=== PATIENT | female | born 1980 ===

== ENCOUNTER 2016-10-13 16:40 | Inpatient (IN) ==
[2016-10-13] MEDS ORDERED: METOCLOPRAMIDE 10 MG/2 ML VIAL IV STA (17:05)
[2016-10-13] MEDS ORDERED: THIAMINE INJ 100 MG, FOLIC ACID INJ 1 MG, MAGNESIUM SULF INJ 2 GM, MULTIVITAMIN INJ 10 ... IV STA (17:05)
[2016-10-13] MEDS ORDERED: PANTOPRAZOLE 40 MG VIAL IV STA (17:05)
[2016-10-13] MEDS ORDERED: SODIUM CHLORIDE 0.9% 1,000 ML IV STA (17:05)
--- NOTE | 2016-10-13 17:13 | Emergency Department Note ---
Arrival - Arrival Chief Complaint: Abdominal / Flank Pain Stated Complaint: abdominal pain/low bp ED Nursing Triage Note: Transfer from [facility] ER for further evaluation of abdominal pain, increased lactate 3.5, and increasd alcohol 0.24. Onset pain began approx one week ago. +nausea/vomiting. Mode of Arrival: Stretcher Limitations: No Limitations Source: Patient Time Seen by Provider: 10/13/16 17:05 - History of Present Illness HPI Narrative: This 36-year-old female presents on transfer from [facility] where she presented earlier in the day hyperventilating, intoxicated, and lethargic. The patient currently is arousable and oriented 3. She states she has had 18 beers before presenting to [facility] this morning. Subsequent studies at [facility] revealed an elevated alcohol level as expected as well as elevated blood sugar and lactic acid, both expected given her inebriated state. In association with this she denies chest pain, shortness of breath, nausea, vomiting, or diarrhea. Currently she has no specific complaint and appears in no acute medical distress. Onset (ago): hour(s) (Patient presents several hours after onset of symptom) Date of Last Menstrual Period: "I hadn't seen my period in a long time". Allergies/Adverse Reactions: Allergies Allergy/AdvReac Type Severity Reaction Status Date / Time No Known Allergies Allergy Verified 10/13/16 16:51 Home Medications: Home Medications Medication Instructions Recorded Confirmed Type Aspirin [Ecotrin] 81 mg PO DAILY 08/28/15 10/13/16 History Glimepiride 4 mg PO BID 08/28/15 10/13/16 History Lisinopril 40 mg PO DAILY 08/28/15 10/13/16 History Metoprolol Succinate Xl [Toprol Xl] 100 mg PO BEDTIME 08/28/15 10/13/16 History metFORMIN [Glucophage] 1,000 mg PO BID W/MEALS 08/28/15 10/13/16 History Propylene Glycol [Systane Balance] 1 drop BOTH EYES QID PRN 10/13/16 10/13/16 History Review of System - Review of System 12 point system: reviewed and no additional remarkable complaints except as stated - Review of System Constitutional: Present: as per HPI Respiratory: Present: as per HPI Cardiovascular: Present: as per HPI Gastrointestinal: Present: as per HPI Neurological: Present: as per HPI Medical,Surgical,& Family Hx - Medical History Cardio: History of: Hypertension Endocrine: History of: Diabetes Mellitus (NIDDM) - Surgical History Reproductive Surgeries: Surgical HX of;: Dilation and Curettage (08/28/15) Orthopedic Surgeries: Surgical HX of;: Orthopedic Surgery (right ankle) - Family History Family History: Reports;: Family Diabetes (mother, father), Family Hypertension (mother, father) Denies;: Family Heart Disease, Family Stroke - Social History Smoking Status: Unknown if ever smoked Frequency of Alcohol Use: Frequently Type of Drug Use: None Exam Physical Examination: GENERAL: Well developed, well nourished female in no acute distress. HEENT: Normocephalic. No trauma. Moist mucous membranes. EOMI. PERRLA. ENT NML NECK: Supple. No adenopathy. CARDIAC: Regular. No murmurs. Heart rate 100 CHEST: Clear to auscultation. No respiratory distress. O2 sat 90% ABDOMEN: Soft. Midepigastric tenderness. Active bowel sounds. EXTREMITIES: No trauma. Normal ROM. No pedal edema. SKIN: No diaphoresis. No rash. NEURO: Alert. Oriented 3 but inebriated and lethargic. Motor, sensory, vibratory intact. No focal deficits. Vital Signs: Vital Signs Temperature 97.2 F L 10/13/16 16:40 Pulse Rate 92 H 10/13/16 18:15 Respiratory Rate 18 10/13/16 18:15 Blood Pressure 124/71 10/13/16 18:15 O2 Sat by Pulse Oximetry 97 10/13/16 18:15 Course - Consultations Consultation #1: Discussed with hospitalist service who will admit for further evaluation treatment. Results - Labs CBC & BMP: 10/13/16 17:49 Labs: Laboratory per [place] reveals creatinine 1.0, BUN 12, sodium 138, potassium 4.4 , glucose 379, alcohol level 0.24 white blood count 6.8, hematocrit 38, pH 7.28 on room air test negative lipase 109, amylase 31. Lab here reveals lactic acid of 2.9, glucose 227, and alcohol 162 - Impressions EKG from [place]: Sinus tachycardia at 135 with normal [place] interval and QRS duration. Right ventricular hypertrophy noted, nonspecific ST T changes noted. No acute injury pattern noted. - Diagnostic Findings Procedure: Chest x-ray: image reviewed by me, report reviewed by me (Mild cardiomegaly otherwise negative) Disposition Clinical Impression: Alcohol intoxication, Hyperglycemia Case discussed with: patient Condition: Guarded Time of Disposition: 18:33
--- NOTE | 2016-10-13 17:56 | XRay Report ---
Exam: XR chest 1V portable Date: 10/13/2016 5:07 PM Indication: Shortness of breath Comparison: None Technical: AP portable Findings: External cardiac leads are present. The heart is mildly prominent. No obvious infiltrate or effusion. Mediastinum and bony structures are otherwise intact. Impression: 1. Mild cardiomegaly without decompensation. PROCEDURE INTERPRETED AT [facility] DEPARTMENT OF RADIOLOGY Final Report Signed by: Dr. Neil Palacio
[2016-10-13] MEDS ORDERED: PANTOPRAZOLE 40 MG VIAL IV ONE (17:58)
[2016-10-13 18:02] LABS: Apearance,Urine CLEAR (Clear); Bilirubin,Urine Negative (Negative); Blood, Urine Negative (Negative); Glucose,Urine (UA) >=500 mg/dL (Negative); Ketones,Urine Negative (Negative); Mucus,Urine Occasional /LPF (Occasional); Nitrite,Urine Negative (Negative); Protein,Urine Negative; RBC,Urine <1 /HPF (0-4); Urine Color Yellow (Yellow); Urine Urobilinogen < 2.0 EU/DL (0.2-1.0); WBC,Urine <1 /HPF (0-6)
[2016-10-13 18:10] LABS: Barbiturates Screen,Urine Negative (Negative); Benzodiazepines Screen,Urine Negative (Negative); Cannabinoid Screen,Urine Negative (Negative); Opiate Screen,Urine Negative (Negative); Phencyclidine Screen,Urine Negative (Negative)
[2016-10-13 18:14] LABS: Lactic Acid 2.9 MMOL/L (0.4-2.0)
[2016-10-13 18:18] LABS: Calcium 8.2 MG/DL (8.5-10.1); Osmolality,Calculated 285.3 MOS/KG (273-304); Potassium 4.4 MMOL/L (3.5-5.1)
[2016-10-13] MEDS ORDERED: LORazepam 2 MG/1 ML VIAL IV PRN (18:35)
[2016-10-13] MEDS ORDERED: DEXTROSE 50% 25 GM/50 ML VIAL IV PRN (18:36)
[2016-10-13] MEDS ORDERED: GLUCAGON 1 MG VIAL IM PRN (18:36)
[2016-10-13] MEDS ORDERED: SODIUM CHLORIDE 0.9% 3,150 ML IV ONE (18:37)
--- NOTE | 2016-10-13 18:51 | Hospitalist History & Physical ---
Assessment and Plan - Time spent with patient Time spent with patient: Greater than 30 minutes (1) Alcohol intoxication Status: Acute Assessment and plan: We will administer fluids and admit observation. Current Visit: Yes (2) Abdominal pain Status: Acute Assessment and plan: Appears to be improving. Lactic acid is 2.9 not significantly elevated. Amylase lipase normal. CT of the abdomen is pending. Will admit to observation for fluids. Current Visit: Yes (3) Diabetes mellitus Status: Acute Assessment and plan: Sliding scale insulin and Accu-Cheks. Current Visit: Yes History of Present Illness Chief complaint: Alcohol intoxication and abdominal pain History of present illness: Ms. Duong is a 36 year old female with diabetes mellitus who was transferred from [facility] with alcohol intoxication and abdominal pain. Patient is inebriated and sleeping. She is easy to arouse however falls right back asleep. I am able to only obtain a limited history. Information was obtained from ER records. Patient apparently had drank 18 beers prior to presenting to [facility]. She was inebriated and vomiting. She complained of abdominal pain that she has been having for 2 weeks. The patient told me her abdominal pain is much better currently. She points to her left upper quadrant. Lactic acid 2.9 Home Medications Medication Instructions Recorded Confirmed Type Aspirin [Ecotrin] 81 mg PO DAILY 08/28/15 10/13/16 History Glimepiride 4 mg PO BID 08/28/15 10/13/16 History Lisinopril 40 mg PO DAILY 08/28/15 10/13/16 History Metoprolol Succinate Xl [Toprol Xl] 100 mg PO BEDTIME 08/28/15 10/13/16 History metFORMIN [Glucophage] 1,000 mg PO BID W/MEALS 08/28/15 10/13/16 History Propylene Glycol [Systane Balance] 1 drop BOTH EYES QID PRN 10/13/16 10/13/16 History Allergies Allergy/AdvReac Type Severity Reaction Status Date / Time No Known Allergies Allergy Verified 10/13/16 16:51 Medical,Surgical,& Family Hx - Medical History Cardio: History of: Hypertension Endocrine: History of: Diabetes Mellitus (NIDDM) - Surgical History Reproductive Surgeries: Surgical HX of;: Dilation and Curettage (08/28/15) Orthopedic Surgeries: Surgical HX of;: Orthopedic Surgery (right ankle) - Family History Family History: Reports;: Family Diabetes (mother, father), Family Hypertension (mother, father) Denies;: Family Heart Disease, Family Stroke - Social History Smoking Status: Unknown if ever smoked Frequency of Alcohol Use: Frequently Type of Drug Use: None ROS unobtainable: due to mental status 12 point system: reviewed and no additional remarkable complaints except as stated Exam - Constitutional Vitals: Period Temp Pulse Resp BP Sys/García Pulse Ox Last 24 Hr 97.2 F-97.2 F 92-103 16-21 102-124/68-71 96-98 General appearance: no acute distress - Head Head exam: Present: normocephalic, atraumatic - Eye Eye exam: Present: EOMI Pupils: Present: ТАТЬЯНА - ENT ENT exam: Present: normal exam - Neck Neck exam: Present: normal inspection - Respiratory Respiratory exam: Present: clear to auscultation bilaterally. Absent: rhonchi, wheezes - Cardiovascular Cardiovascular exam: Present: regular rate and rhythm. Absent: gallop, rubs, systolic murmur - GI/Abdominal GI/Abdominal exam: Present: normal bowel sounds, tenderness (Mild tenderness to palpation left upper quadrant), soft. Absent: distended, firm, guarding, rebound - Extremities Exam Extremities exam: Present: normal inspection. Absent: calf tenderness, edema Results - Labs CBC & BMP: 10/13/16 17:49 10/13/16 17:49 Lab Results: I have reviewed the past 24 hour labs
[2016-10-13 18:53] LABS: Basophils % 0.4 % (0.0-0.8); Eosinophils % 0.2 % (0.00-10.9); Hematocrit 35.7 VOL% (35.7-47.0); Hemoglobin 12.5 GM/DL (12.0-16.0); Immature Granulocytes % 0.4 %; Immature Granulocytes Absolute 0.02 #; Lymphocytes # 1.5 10*3/uL (1.4-4.0); Lymphocytes % 29.6 % (21.3-54.2); Mean Corpuscular Hemoglobin 31 PG (27-34); Mean Corpuscular Volume 88.1 FL (87-102); Mean Platelet Volume 9.9 FL (9.6-12.0); Monocytes # 0.4 10*3/uL (0.11-0.8); Monocytes % 6.8 % (1.7-12.7); Neutrophils # 3.2 10*3/uL (1.4-7.4); Neutrophils % 62.6 % (38.7-73.9); Platelet Count 101 T/CUMM (130-400); Red Blood Count 4.05 MC/CUMM (3.8-5.5); Red Cell Distribution Width 12.8 % (9.3-17.3); White Blood Count 5.2 T/CUMM (4-12)
[2016-10-13 19:00] LABS: PT Patient Result 10.6 SECS; Partial Thromboplastin Time 23.6 SECS (0-40)
--- NOTE | 2016-10-13 19:38 | CT Report ---
Exam: CT abdomen pelvis w con Date: 10/13/2016 6:38 PM Comparison: None Indication: Fever Total DLP: 1193.5 mGy*cm Technical: No oral contrast was administered. Images were obtained from the lung bases to the iliac crest continuation through the pelvis with 100 cc of Omnipaque 350 with axial sagittal coronal imaging available for review. Dose reduction was performed with decreasing kv and mA and automated exposure Findings: Lung bases: No pneumothorax or mass present minimal dependent atelectatic change in both lung bases. Mild cardiac enlargement present Liver and Spleen: Fatty infiltration of liver is present. The hepatic and portal veins are unremarkable. Spleen is enlarged measuring approximately 14 cm. Gallbladder and Pancreas: Previous cholecystectomy. Mild fatty infiltration of the pancreas present. No focal mass otherwise noted or pancreatic duct dilatation. Adrenals: Unremarkable Kidneys: Both kidneys are equally perfused and demonstrate no evidence for obstructive uropathy. The ureters are demonstrated to bladder without obstruction bilaterally. Stomach: Incomplete distended with air-fluid and debris Retroperitoneum: Small shotty nodes in the periaortic region. Aorta and IVC: No obvious aneurysm aorta vessels and IVC are unremarkable. Increase in number of vessels adjacent to the spleen and suggesting splenic varices, gastric varices and esophageal varices Bowel and Mesentery: The appendix is demonstrated without enlargement. A few prediverticular changes present in the rectosigmoid colon. No obvious bowel obstruction or mass present. Pelvis: Bladder: Cavanaugh catheter present within the bladder with contrast present. Small amount of air is noted Fluid: No free fluid identified. Lymph nodes: Small shotty nodes in the inguinal regions bilaterally. Pelvic organs: Unremarkable Osseous structures: No suspicious appearing osseous abnormalities noted. Impression: 1. Splenomegaly with fatty infiltration of the liver 2. Prior cholecystectomy 3. Increased vascularity suggest some early splenic varices. Early cirrhosis changes suspected with some early gastric and esophageal varices questioned 4. No acute intra-abdominal or pelvic pathology otherwise noted at this time. PROCEDURE INTERPRETED AT [facility] DEPARTMENT OF RADIOLOGY Final Report Signed by: Dr. Neil Palacio
[2016-10-13 19:42] LABS: Folate 14.3 NG/ML (5.4-24.0)
[2016-10-13] MEDS: SODIUM CHLORIDE 0.9% 1,000 ML IV SCH (20:39)
[2016-10-13 22:29] LABS: ABG HCO3 20.3 MMOL/L (20-26); ABG Oxygen Saturation 95.7 % (95-100); ABG PCO2 41.5 MM HG (35-48); ABG PH 7.312 (7.35-7.45); ABG TCO2 19.1 MMOL/L (23-27); Allen Test Positive; Pt O2 Delivery Device Room Air
[2016-10-13] MEDS: INSULIN REGULAR 100 UNIT/ML SUBCUT SCH (23:54)
[2016-10-14] MEDS ORDERED: ACETAMINOPHEN 325 MG TABLET PO PRN (04:16)
[2016-10-14] MEDS: SODIUM CHLORIDE 0.9% 1,000 ML IV SCH ×3 (04:36→12:46)
[2016-10-14] MEDS: INSULIN REGULAR 100 UNIT/ML SUBCUT SCH ×2 (06:28→12:15)
[2016-10-14 07:29] LABS: Albumin 2.9 G/DL (3.4-5.0); Bilirubin,Total 0.7 MG/DL (0.2-1.0); Calcium 7.6 MG/DL (8.5-10.1); Osmolality,Calculated 283.1 MOS/KG (273-304); Potassium 4.4 MMOL/L (3.5-5.1); Total Protein 6.2 G/DL (6.4-8.3)
--- NOTE | 2016-10-14 15:58 | Discharge Summary ---
Hospital Course - Hospital Course Hospital Course: This hospitalization included patient admitted in transfer for abdominal pain and alcohol intoxication. The patient was observed in the ICU for 24 hours. She remained hemodynamically stable. Her CT scan of the abdomen was unremarkable. She was afebrile and her vitals were stable. She was observed today and had no further pain. She was able to tolerate her diet. She has been stable. She has reached maximum hospitalization and is ready for discharge. She will be able to follow with [facility] primary care in the next week. - Time spent with patient Time with patient DS: Greater than 30 minutes (32 minutes) Diagnosis - Discharge Diagnosis (1) Alcohol intoxication Status: Resolved (2) Abdominal pain Status: Resolved (3) Diabetes mellitus Status: Chronic Discharge Plan - Discharge Data Disposition: Disch To Home/Self Care Condition at Discharge: Stable Discharge Diet: advance to your usual diet Activity: resume usual activities as tolerated Contact your physician if you experience:: fever over 101 - Discharge Medications Continue Metoprolol Succinate Xl [Toprol Xl] 100 mg PO BEDTIME Aspirin [Ecotrin] 81 mg PO DAILY metFORMIN [Glucophage] 1,000 mg PO BID W/MEALS Lisinopril 40 mg PO DAILY Glimepiride 4 mg PO BID Propylene Glycol [Systane Balance] 1 drop BOTH EYES QID PRN PRN Reason: Dry Eyes - Follow Up or Referral - Forms/Instructions Additional Discharge Instructions: Follow up with primary care at [facility]. Patient to avoid ETOH Exam - Constitutional Vitals: Period Temp Pulse Resp BP Sys/García Pulse Ox Last 24 Hr 97.2 F-98.2 F 86-103 12-30 100-147/62-94 95-99 General appearance: normal weight - Head Head exam: Present: normal inspection - ENT ENT exam: Present: normal exam - Respiratory Respiratory exam: Present: clear to auscultation bilaterally - Cardiovascular Cardiovascular exam: Present: regular rate and rhythm - GI/Abdominal GI/Abdominal exam: Present: normal bowel sounds - Extremities Exam Extremities exam: Present: normal inspection - Neurological Exam Neurological exam: Present: alert, oriented X3 - Psychiatric Psychiatric exam: Present: normal affect, normal mood - Skin Skin exam: Present: normal color Discharge Results Procedures and tests throughout hospitalization: Pending Orders 10/13/16 17:49 Urine Culture Stat 10/13/16 19:23 MRSA Surveillence, Inf Control Routine 10/13/16 20:22 Blood Culture Stat Labs on day of discharge: Labs from last 24 hours 10/14/16 10/14/16 10/14/16 12:15 06:41 06:09 WBC RBC Hgb Hct MCV MCH MCHC RDW Plt Count MPV Neut % (Auto) Lymph % (Auto) Jenkins % (Auto) Eos % (Auto) Baso % (Auto) Neut # (Auto) Lymph # (Auto) Jenkins # (Auto) Eos # (Auto) Baso # (Auto) Immature Gran % Nucleated RBC % Immature Gran # Nucleated RBCs # INR PT Patient/Control Mix Circ Anticoag PTT ABG pH ABG pCO2 ABG pO2 ABG HCO3 ABG Total CO2 ABG O2 Saturation ABG Base Excess FiO2 Sodium 142 Potassium 4.4 Chloride 111 H Carbon Dioxide 25 Anion Gap 10.4 BUN 7 Creatinine 0.60 GFR Calculation 129 BUN/Creatinine Ratio 11.00 Glucose 145 H POC Glucose 144 H 166 H Hemoglobin A1c Calculated Osmolality 283.1 Lactic Acid Calcium 7.6 L Total Bilirubin 0.70 AST 36 ALT 33 Alkaline Phosphatase 98 Total Protein 6.2 L Albumin 2.9 L Globulin 3.3 Albumin/Globulin Ratio 0.8 L Amylase Lipase Vitamin B12 Folate Serum , Qual Random Cortisol Urine Color Urine Appearance Urine pH Ur Specific [place] Urine Protein Urine Glucose (UA) Urine Ketones Urine Blood Urine Nitrate Urine Bilirubin Urine Urobilinogen Urine Leukocytes Urine RBC Urine WBC Urine Mucus Ur Culture Indicated? Urine Opiates Screen Ur Barbiturates Screen Ur Phencyclidine Scrn U Amphetamine/Methamph U Benzodiazepines Scrn U Cocaine Metab Screen U Cannabinoids Screen Serum Alcohol 10/13/16 10/13/16 10/13/16 23:43 22:25 21:41 WBC RBC Hgb Hct MCV MCH MCHC RDW Plt Count MPV Neut % (Auto) Lymph % (Auto) Jenkins % (Auto) Eos % (Auto) Baso % (Auto) Neut # (Auto) Lymph # (Auto) Jenkins # (Auto) Eos # (Auto) Baso # (Auto) Immature Gran % Nucleated RBC % Immature Gran # Nucleated RBCs # INR PT Patient/Control Mix Circ Anticoag PTT ABG pH 7.312 L ABG pCO2 41.5 ABG pO2 81.0 ABG HCO3 20.3 ABG Total CO2 19.1 L ABG O2 Saturation 95.7 ABG Base Excess -5.0 L FiO2 21.00 Sodium Potassium Chloride Carbon Dioxide Anion Gap BUN Creatinine GFR Calculation BUN/Creatinine Ratio Glucose POC Glucose 155 H Hemoglobin A1c Calculated Osmolality Lactic Acid 2.6 H Calcium Total Bilirubin AST ALT Alkaline Phosphatase Total Protein Albumin Globulin Albumin/Globulin Ratio Amylase Lipase Vitamin B12 Folate Serum , Qual Random Cortisol Urine Color Urine Appearance Urine pH Ur Specific [place] Urine Protein Urine Glucose (UA) Urine Ketones Urine Blood Urine Nitrate Urine Bilirubin Urine Urobilinogen Urine Leukocytes Urine RBC Urine WBC Urine Mucus Ur Culture Indicated? Urine Opiates Screen Ur Barbiturates Screen Ur Phencyclidine Scrn U Amphetamine/Methamph U Benzodiazepines Scrn U Cocaine Metab Screen U Cannabinoids Screen Serum Alcohol 10/13/16 10/13/16 10/13/16 20:22 17:49 17:49 WBC 5.2 RBC 4.05 Hgb 12.5 Hct 35.7 MCV 88.1 MCH 31 MCHC 35.0 RDW 12.8 Plt Count 101 L MPV 9.9 Neut % (Auto) 62.6 Lymph % (Auto) 29.6 Jenkins % (Auto) 6.8 Eos % (Auto) 0.2 Baso % (Auto) 0.4 Neut # (Auto) 3.2 Lymph # (Auto) 1.5 Jenkins # (Auto) 0.4 Eos # (Auto) 0.0 Baso # (Auto) 0.0 Immature Gran % 0.4 Nucleated RBC % 0.0 Immature Gran # 0.02 Nucleated RBCs # 0.00 INR PT Patient/Control Mix Circ Anticoag PTT ABG pH ABG pCO2 ABG pO2 ABG HCO3 ABG Total CO2 ABG O2 Saturation ABG Base Excess FiO2 Sodium Potassium Chloride Carbon Dioxide Anion Gap BUN Creatinine GFR Calculation BUN/Creatinine Ratio Glucose POC Glucose Hemoglobin A1c Calculated Osmolality Lactic Acid 3.0 H Calcium Total Bilirubin AST ALT Alkaline Phosphatase Total Protein Albumin Globulin Albumin/Globulin Ratio Amylase Lipase Vitamin B12 Folate Serum , Qual Negative Random Cortisol Urine Color Urine Appearance Urine pH Ur Specific [place] Urine Protein Urine Glucose (UA) Urine Ketones Urine Blood Urine Nitrate Urine Bilirubin Urine Urobilinogen Urine Leukocytes Urine RBC Urine WBC Urine Mucus Ur Culture Indicated? Urine Opiates Screen Ur Barbiturates Screen Ur Phencyclidine Scrn U Amphetamine/Methamph U Benzodiazepines Scrn U Cocaine Metab Screen U Cannabinoids Screen Serum Alcohol 10/13/16 10/13/16 10/13/16 17:49 17:49 17:49 WBC RBC Hgb Hct MCV MCH MCHC RDW Plt Count MPV Neut % (Auto) Lymph % (Auto) Jenkins % (Auto) Eos % (Auto) Baso % (Auto) Neut # (Auto) Lymph # (Auto) Jenkins # (Auto) Eos # (Auto) Baso # (Auto) Immature Gran % Nucleated RBC % Immature Gran # Nucleated RBCs # INR PT Patient/Control Mix Circ Anticoag PTT ABG pH ABG pCO2 ABG pO2 ABG HCO3 ABG Total CO2 ABG O2 Saturation ABG Base Excess FiO2 Sodium Potassium Chloride Carbon Dioxide Anion Gap BUN Creatinine GFR Calculation BUN/Creatinine Ratio Glucose POC Glucose Hemoglobin A1c 9.9 H Calculated Osmolality Lactic Acid Calcium Total Bilirubin AST ALT Alkaline Phosphatase Total Protein Albumin Globulin Albumin/Globulin Ratio Amylase Lipase Vitamin B12 525 Folate 14.3 Serum , Qual Random Cortisol 12.4 Urine Color Urine Appearance Urine pH Ur Specific [place] Urine Protein Urine Glucose (UA) Urine Ketones Urine Blood Urine Nitrate Urine Bilirubin Urine Urobilinogen Urine Leukocytes Urine RBC Urine WBC Urine Mucus Ur Culture Indicated? Urine Opiates Screen Ur Barbiturates Screen Ur Phencyclidine Scrn U Amphetamine/Methamph U Benzodiazepines Scrn U Cocaine Metab Screen U Cannabinoids Screen Serum Alcohol 10/13/16 10/13/16 10/13/16 17:49 17:49 17:49 WBC RBC Hgb Hct MCV MCH MCHC RDW Plt Count MPV Neut % (Auto) Lymph % (Auto) Jenkins % (Auto) Eos % (Auto) Baso % (Auto) Neut # (Auto) Lymph # (Auto) Jenkins # (Auto) Eos # (Auto) Baso # (Auto) Immature Gran % Nucleated RBC % Immature Gran # Nucleated RBCs # INR 1.0 PT Patient/Control Mix 10.6 Circ Anticoag PTT 23.6 ABG pH ABG pCO2 ABG pO2 ABG HCO3 ABG Total CO2 ABG O2 Saturation ABG Base Excess FiO2 Sodium Potassium Chloride Carbon Dioxide Anion Gap BUN Creatinine GFR Calculation BUN/Creatinine Ratio Glucose POC Glucose Hemoglobin A1c Calculated Osmolality Lactic Acid Calcium Total Bilirubin AST ALT Alkaline Phosphatase Total Protein Albumin Globulin Albumin/Globulin Ratio Amylase Lipase 119.0 Vitamin B12 Folate Serum , Qual Random Cortisol Urine Color Urine Appearance Urine pH Ur Specific [place] Urine Protein Urine Glucose (UA) Urine Ketones Urine Blood Urine Nitrate Urine Bilirubin Urine Urobilinogen Urine Leukocytes Urine RBC Urine WBC Urine Mucus Ur Culture Indicated? Urine Opiates Screen Negative Ur Barbiturates Screen Negative Ur Phencyclidine Scrn Negative U Amphetamine/Methamph Negative U Benzodiazepines Scrn Negative U Cocaine Metab Screen Negative U Cannabinoids Screen Negative Serum Alcohol 10/13/16 10/13/16 17:49 17:49 WBC RBC Hgb Hct MCV MCH MCHC RDW Plt Count MPV Neut % (Auto) Lymph % (Auto) Jenkins % (Auto) Eos % (Auto) Baso % (Auto) Neut # (Auto) Lymph # (Auto) Jenkins # (Auto) Eos # (Auto) Baso # (Auto) Immature Gran % Nucleated RBC % Immature Gran # Nucleated RBCs # INR PT Patient/Control Mix Circ Anticoag PTT ABG pH ABG pCO2 ABG pO2 ABG HCO3 ABG Total CO2 ABG O2 Saturation ABG Base Excess FiO2 Sodium 141 Potassium 4.4 Chloride 109 H Carbon Dioxide 22 Anion Gap 14.4 BUN 7 Creatinine 0.70 GFR Calculation 133 BUN/Creatinine Ratio 10.00 Glucose 227 H POC Glucose Hemoglobin A1c Calculated Osmolality 285.3 Lactic Acid 2.9 H Calcium 8.2 L Total Bilirubin AST ALT Alkaline Phosphatase Total Protein Albumin Globulin Albumin/Globulin Ratio Amylase 29 Lipase 112.0 Vitamin B12 Folate Serum , Qual Random Cortisol Urine Color Yellow Urine Appearance Clear Urine pH 5.0 Ur Specific [place] 1.010 Urine Protein Negative Urine Glucose (UA) >=500 Urine Ketones Negative Urine Blood Negative Urine Nitrate Negative Urine Bilirubin Negative Urine Urobilinogen < 2.0 H Urine Leukocytes Negative Urine RBC <1 Urine WBC <1 Urine Mucus Occasional Ur Culture Indicated? Not indicated Urine Opiates Screen Ur Barbiturates Screen Ur Phencyclidine Scrn U Amphetamine/Methamph U Benzodiazepines Scrn U Cocaine Metab Screen U Cannabinoids Screen Serum Alcohol 162 DS: Provider Date of admission: 10/13/16 18:31 Primary care physician: Rukhsana Cobb MD Attending physician on admission: Tone Quiroga MD Discharging clinician: Isai Castellanos Jr., MD
[2016-10-14 17:05] VITALS: BP 144/102
[2016-10-14] MEDS ORDERED: THIAMINE INJ 100 MG, FOLIC ACID INJ 1 MG, MULTIVITAMIN INJ 10 ML in SODIUM CHLORIDE 0.9... IV SCH (19:00)
== END 2016-10-14 17:30 | disposition home or self-care (01) | DRG 775 ==
LOC: EDUNIT# → EDBD → N.ED 16:40 → N.EDINP 18:31 → SUATTDRO 18:31 → N.ICU 19:27
PROVIDERS: ADMIT Internal Medicine Infectious Disease; ATTEND Internal Medicine Nephrology